=== PATIENT | male | born 1945 | race Caucasian/White ===

== ENCOUNTER → 2016-12-01 | Day surgery (SDC) | payer MEDICARE ==
[~2016-12-01] MED LIST: LACTATED RINGER'S 1000 ML INJ 1,000 ML ONE; PROPOFOL 500 MG/50 ML BTL IV ONE
--- NOTE | 2016-12-01 09:42 | GIPROC ---
[facility] [address] [facility], [address] EGD PROCEDURE REPORT EXAM DATE: 12/01/2016 PATIENT NAME: Alexandr Seaman MR #: [id number] BIRTHDATE: 1945 ATTENDING: Emilio Andrew MD ORDER #: [id number] VESSEL SCRAPPER: Liz Kelly RN STATUS: outpatient INDICATIONS: The patient is a 71 yr old male here for an EGD due to anemia PROCEDURE PERFORMED: EGD w/ biopsy MEDICATIONS: None and Per Anesthesia. TOPICAL ANESTHETIC: none CONSENT: The patient understands the risks and benefits of the procedure and understands that these risks include, but are not limited to: sedation, allergic reaction, infection, perforation and/or bleeding. Alternative means of evaluation and treatment include, among others: physical exam, x-rays, and/or surgical intervention. The patient elects to proceed with this endoscopic procedure. medical equipment was checked for proper function. Hand hygiene and appropriate measures for infection prevention was taken. After the risks, benefits and alternatives of the procedure were thoroughly explained, Informed consent was verified, confirmed and timeout was successfully executed by the treatment team. The patient was anesthetized with topical anesthesia and the EC-3890Li ([id number]) endoscope was introduced through the mouth and advanced to the second portion of the duodenum. Retroflexed views revealed no abnormalities The gastroscope was then slowly withdrawn and removed. Sever gastritis Bx from antrum. The endoscopy was otherwise normal. ADVERSE EVENTS: There were no complications. IMPRESSIONS: 1. Sever gastritis Bx from antrum 2. Normal endoscopy otherwise 3. Retroflexed views revealed no abnormalities RECOMMENDATIONS: 1. Await biopsy results. Biopsy results will not be ready for 7-10 days. If you don't hear from us in two weeks, call our office for biopsy results. 2. Anti-reflux regimen 3. Continue PPI 4. Avoid NSAIDS PATIENT CONDITION: stable DISPOSITION: Inpatient REPEAT EXAM: Return as needed for EGD Emilio Andrew MD eSigned: Emilio Andrew MD 12/01/2016 9:41 AM cc: Thierry Burton M.D. PATIENT NAME: Alexandr Seaman MR#: [id number]
--- NOTE | 2016-12-01 09:51 | GIPROC ---
[facility] [address] [facility], [address] COLONOSCOPY PROCEDURE REPORT EXAM DATE: 12/01/2016 PATIENT NAME: Alexandr Seaman MR #: [id number] BIRTHDATE: 1945 ENDOSCOPIST: Emilio Andrew MD ORDER #: [id number] PRESS OPERATOR ASSISTANT: Liz Kelly RN STATUS: outpatient INDICATIONS: The patient is a 71 yr old male here for a colonoscopy due to anemia, non-specific PROCEDURE PERFORMED: Colonoscopy with biopsy Colonoscopy with ablation Colonoscopy with polypectomy MEDICATIONS: None and Per Anesthesia. PREP QUALITY: fair PREP TYPE:GoLytely ESTIMATED BLOOD LOSS: None CONSENT: The patient understands the risks and benefits of the procedure and understands that these risks include, but are not limited to: sedation, allergic reaction, infection, perforation and/or bleeding. Alternative means of evaluation and treatment include, among others: physical exam, x-rays, and/or surgical intervention. The patient elects to proceed with this endoscopic procedure. medical equipment was checked for proper function. Hand hygiene and appropriate measures for infection prevention was taken. After the risks, benefits and alternatives of the procedure were thoroughly explained, Informed consent was verified, confirmed and timeout was successfully executed by the treatment team. A digital exam was performed and revealed no abnormalities of the rectum The EC-3490Li ([id number]) endoscope was introduced through the anus and advanced to the cecum, which was identified by both the appendix and ileocecal valve. The instrument was then slowly withdrawn as the colon was fully examined. COLON FINDINGS: Polyp mass in the cecum friable Bx done 2 cm polyp next to the above lesion. 2 polyps in the ascending colon removed by snare. 2 polyps in descending colon ablated with heat. 2 polyps in the sigmoid ablated with heat. 2 cm polyp in the rectum removed by snare. The colon mucosa was otherwise normal. Retroflexed views revealed internal hemorrhoids and Retroflexed views revealed medium internal hemorrhoids The scope was then completely withdrawn from the patient and the procedure terminated. ADVERSE EVENTS: There were no complications. IMPRESSIONS: 1. Polyp mass in the cecum friable Bx done 2 cm polyp next to the above lesion 2. 2 polyps in the ascending colon removed by snare 3. 2 polyps in descending colon ablated with heat 4. 2 polyps in the sigmoid ablated with heat 5. 2 cm polyp in the rectum removed by snare 6. The colon mucosa was otherwise normal 7. Retroflexed views revealed internal hemorrhoids 8. Retroflexed views revealed medium internal hemorrhoids 9. Was performed 10. Revealed no abnormalities of the rectum RECOMMENDATIONS: 1. Await biopsy results. Biopsy results will not be ready for 7-10 days. If you don't hear from us in two weeks, call our office for results. 2. Yearly hemoccult 3. High fiber diet 4. Surgical consult Dr Montiel CEA in blood CT of Abdomin and pelvic with PO and IV contrast RTC in 2 wks RECALL: Return 1 year Colonoscopy Emilio Andrew MD eSigned: Emilio Andrew MD 12/01/2016 9:51 AM cc: Thierry Pinon M.D. PATIENT NAME: Alexandr Seaman MR#: [id number]
== END | disposition home or self-care (01) ==
LOC: ESDC 07:04
PROVIDERS: ATTEND Hospitalist
DX: D64.9 Anemia, unspecified (principal); D12.2 Benign neoplasm of ascending colon; D12.0 Benign neoplasm of cecum; D12.4 Benign neoplasm of descending colon; D12.5 Benign neoplasm of sigmoid colon; K62.1 Rectal polyp; K64.8 Other hemorrhoids; K29.70 Gastritis, unspecified, without bleeding
CPT/HCPCS: 00740; 00810; 43239; 45385; 45388; 88305; 88312; J7120